=== PATIENT | male | born 1970 | race African-American/Black ===

== ENCOUNTER 2017-10-22 08:59 | Emergency (ER) | payer BC ==
[~2017-10-22] VITALS: Ht 175.3 cm; Wt 90.5 kg
[~2017-10-22 08:59] MED LIST: MICARDIS HCT 121 TA1 PO; NO HOME MEDICATIONS; PEPCID 20MG TAB20 MG PO; ZITHROMAX Z PA250 MG PO
[2017-10-22 09:04] VITALS: BP 134/82; TEMP 97.8
[2017-10-22] MEDS ORDERED: GLUCOPHAGE1000 MG PO (09:10)
[2017-10-22] MEDS ORDERED: MICARDIS HCT 121 TA1 PO (09:11)
[2017-10-22] MEDS ORDERED: ZESTRIL 10MG10 MG PO (09:12)
[2017-10-22] MEDS ORDERED: CRUTCHES MC (09:55)
[2017-10-22 10:40] VITALS: PULSE 92
== END 2017-10-22 10:35 | disposition home or self-care (01) ==
LOC: COL.ER 08:59
DX: S93.402A Sprain of unspecified ligament of left ankle, initial encounter (principal); E11.9 Type 2 diabetes mellitus without complications; I10 Essential (primary) hypertension; Z79.84 Long term (current) use of oral hypoglycemic drugs; X50.0XXA Overexertion from strenuous movement or load, initial encounter

== ENCOUNTER 2020-08-15 17:32 | Inpatient (IN) | payer BC ==
[~2020-08-15] VITALS: Ht 177.8 cm; Wt 85.0 kg
[~2020-08-15 17:32] MED LIST changes: +CRUTCHES MC; +GLUCOPHAGE1000 MG PO; +GLUCOTROL 5M5 MG/TAB PO; +REGLAN 5MG T5 MG/TAB PO; +ZESTRIL 10MG10 MG PO
[2020-08-15 18:48] LABS: BASO % 0.1 % (0.0-2.0); GRAN # 6.2 (1.4-6.5); GRAN % 79.2 % (42.2-75.2); HEMOGLOBIN 14.6 g/dl (13.5-18.0); LYMPH # 0.8 (1.2-3.4); LYMPH % 10.7 % (20.0-51.0); MEAN CELL VOLUME 73 fl (80.0-100.0); MEAN CORPUSCULAR HEMOGLOBIN 26 pg (27.0-31.0); MEAN CORPUSCULAR HGB CONC 35 g/dl (33.0-37.0); MEAN PLATELET VOLUME 9.8 fl (7.4-10.4); MONO # 0.7 (0.1-0.6); MONO % 9.1 % (1.7-9.3); PLATELET COUNT 378 K/mm3 (130-400); RED BLOOD COUNT 5.73 M/mm3 (4.20-5.60); REDCELL DISTRIBUTION WIDTH-CV 13.5 % (11.5-14.5)
[2020-08-15 19:07] LABS: ALANINE AMINOTRANSFERASE 16 U/L (4-49); ALBUMIN 4.2 gm/dL (3.5-5.0); ALKALINE PHOSPHATASE 78 U/L (50-136); ANION GAP 12 mmol/L (7-16); AST,SGOT 22 U/L (15-37); BILIRUBIN,TOTAL 0.7 mg/dL (0.0-1.0); BLOOD UREA NITROGEN 43 mg/dL (9-20); CALCIUM 9.1 mg/dL (8.4-10.2); CARBON DIOXIDE 27 mmol/L (22-30); CHLORIDE 92 mmol/L (98-107); GLUCOSE 312 mg/dL (74-106); SODIUM 131 mmol/L (137-145); TOTAL PROTEIN 8.1 gm/dL (6.4-8.2)
[2020-08-15 19:16] LABS: ARTERIAL BLD GAS O2 SATURATION 97.6 % (92-100); ARTERIAL BLD GAS TCO2 CT 22.9; ARTERIAL BLOOD GAS BASE EXCESS 0.3 (-2-2); ARTERIAL BLOOD GAS HCO3 22.1 meq/L (22-26); ARTERIAL BLOOD GAS PCO2 28.4 mmHg (35-45); ARTERIAL BLOOD GAS PO2 101.4 mmHg (80-100); ARTERIAL BLOOD GAS pH 7.51 (7.35-7.45)
[2020-08-15 19:19] LABS: TROPONIN-I < 0.012 ng/mL (0.000-0.035)
[2020-08-15] MEDS ORDERED: PRILOSEC 20MG20 MG PO (19:59)
[2020-08-15] MEDS ORDERED: JANUVIA 100MG100 MG PO (20:00)
[2020-08-15 20:05] LABS: INR 1.1 (0.8-3.0); PROTHROMBIN TIME 12.3 SECONDS (9.7-12.8)
[2020-08-15 20:08] LABS: PARTIAL THROMBOPLASTIN TIME 34.7 SECONDS (26.0-37.0)
[2020-08-15 20:29] LABS: C-REACTIVE PROTEIN 16.3 mg/dL (0.0-0.9)
--- NOTE | 2020-08-15 22:04 | NUR ---
PATIENT ARRIVED TO ROOM 304 VIA ER NURSE. REPORT RECEIVED FROM ER NURSEFELA.
[2020-08-15 22:23] VITALS: BP 104/80; PULSE 74; TEMP 98.5
[2020-08-15 22:58] VITALS: BP 104/80; TEMP 98.5
--- NOTE | 2020-08-15 22:58 | NUR ---
PATIENT DROWSY, AWAKENS EASILY. DENIES ANY NEEDS AT THIS TIME.
[2020-08-15 23:39] VITALS: BP 100/77; PULSE 74; TEMP 98.2
[2020-08-16 03:51] VITALS: BP 110/71; PULSE 67; TEMP 97.6
[2020-08-16 06:37] LABS: BASO % 0.2 % (0.0-2.0); GRAN # 4.4 (1.4-6.5); GRAN % 81.2 % (42.2-75.2); HEMATOCRIT 38.5 % (42.0-52.0); LYMPH # 0.7 (1.2-3.4); LYMPH % 12.9 % (20.0-51.0); MEAN CELL VOLUME 75 fl (80.0-100.0); MEAN CORPUSCULAR HEMOGLOBIN 25 pg (27.0-31.0); MEAN CORPUSCULAR HGB CONC 34 g/dl (33.0-37.0); MEAN PLATELET VOLUME 9.9 fl (7.4-10.4); MONO # 0.3 (0.1-0.6); PLATELET COUNT 357 K/mm3 (130-400); RED BLOOD COUNT 5.17 M/mm3 (4.20-5.60); REDCELL DISTRIBUTION WIDTH-CV 13.6 % (11.5-14.5)
[2020-08-16 06:46] LABS: CALCIUM 8.5 mg/dL (8.4-10.2); CREATININE, serum 1.53 (0.66-1.25); POTASSIUM 3.9 mmol/L (3.4-5.0)
--- NOTE | 2020-08-16 07:03 | NUR ---
CHANGE OF SHIFT REPORT GIVEN TO DAY SHIFT NURSE
[2020-08-16 07:52] VITALS: BP 122/78; PULSE 72; TEMP 97.7
--- NOTE | 2020-08-16 08:40 | NUR ---
Pt awake and alert this morning, talkative, no C/O pain at this time. Shift assessments complete, left Pt call light in reach, bed in lowest position.
--- NOTE | 2020-08-16 09:21 | NUR ---
PATIENT ON RA OF NOW, SPO2 96%.
[2020-08-16 12:41] VITALS: BP 148/86; PULSE 70; TEMP 98.7
--- NOTE | 2020-08-16 15:12 | NUR ---
[employer] contacted patient by personal phone to discuss discharge planning. Patient lives in [place] with his , Emily (ph#[phone]) and goes to [facility] for primary care. Patient believes he sees Dr. Alcaraz. Patient obtains medications from [facility] in [place]. Patient has blood pressure and glucose testing supplies at home and no other DME. Patient is normally independent with ADLS. Patient does not have Advance Directives. Patient plans to return home upon discharge. SW contacted patient's , Emily to review discharge plan. Emily has no concerns about patient returning home at this time. SW will continue to follow as needed.
[2020-08-16 16:00] VITALS: BP 142/82; PULSE 80; TEMP 98.5
[2020-08-16 19:32] VITALS: BP 138/84; PULSE 71; TEMP 97.4
--- NOTE | 2020-08-16 19:56 | NUR ---
Resting in bed. Assessment complete. Right lower lobe fine crackles present, otherwise clear. Heart sounds normal. Bowels active x4. Pulses present throughout. No edema noted. IV left AC without complications. Denies pain. Denies needs at this time. Call light in reach.
--- NOTE | 2020-08-17 00:21 | NUR ---
Resting in bed. Denies needs. Call light in reach.
[2020-08-17 01:23] VITALS: BP 126/70; PULSE 60; TEMP 97.7
[2020-08-17 04:16] VITALS: BP 140/78; PULSE 71; TEMP 97.7
--- NOTE | 2020-08-17 05:19 | NUR ---
Patient had uneventful night. Remains on room air during night. Resting in bed this AM. Call light in reach.
[2020-08-17 06:51] LABS: CALCIUM 8.6 mg/dL (8.4-10.2); CREATININE, serum 1.14 (0.66-1.25); MAGNESIUM 2.5 mg/dL (1.6-2.3); POTASSIUM 3.3 mmol/L (3.4-5.0)
--- NOTE | 2020-08-17 07:13 | NUR ---
Report given to MERCEDES Muhammad
[2020-08-17 08:15] VITALS: BP 140/68; PULSE 80; TEMP 98.6
--- NOTE | 2020-08-17 08:46 | NUR ---
Assessment completed, alert/oriented, vital signs stable, on room air and o2 sats WNL, lungs CTA/ diminished RLL, heart RRR/distal pulses are palpable, he reporst feeling much better, sitting up eating breakfast and anticipating going hometoday
--- NOTE | 2020-08-17 09:24 | NUR ---
patient did nor qualify for home oxygen. spo2 >92% during walk
[2020-08-17] MEDS ORDERED: DECADRON6 MG PO (10:41)
--- NOTE | 2020-08-17 13:13 | NUR ---
patient discharging home, discusssed Discharge orders, instructed to follow up with [facility] as sceduled via telehealth appointment, instructed to finish course of Decadron, script sent to [facility] [place] [facility] [place], IV removed, leaving with
== END 2020-08-17 13:14 | disposition home or self-care (01) | DRG 177 ==
LOC: COL.ER 17:32 → PEDS 19:49
PROVIDERS: Nurse Practitioner Family; Physician Assistant; ADMIT Internal Medicine
DX: U07.1 COVID-19 (principal); J96.01 Acute respiratory failure with hypoxia; N17.9 Acute kidney failure, unspecified; K31.84 Gastroparesis; I10 Essential (primary) hypertension; E11.43 Type 2 diabetes mellitus with diabetic autonomic (poly)neuropathy; K21.9 Gastro-esophageal reflux disease without esophagitis; E87.6 Hypokalemia; Z88.0 Allergy status to penicillin; Z79.84 Long term (current) use of oral hypoglycemic drugs
CPT/HCPCS: 99223-AI; 99232-AI; 99239; J0696; J1100; J1650; J1815; J2405; J7030; J8540